=== PATIENT | female | born 1985 | race African-American/Black ===

== ENCOUNTER 2016-05-01 09:29 | Day surgery (SDC) | payer BC, OTHER ==
[2016-04-30 16:15] VITALS: BMI 25.0
[2016-05-01 09:48] LABS: BASOPHIL 1.1 % (0-2.0); EOSINOPHIL 1.3 % (0-4.5); MCH 27.1 pg (25.7-33.7); MCHC 33.3 g/dl (32.0-36.0); MEAN CELL VOLUME 81.5 fl (80-96); MEAN PLT VOLUME 7.6 fl (7.5-11.1); NEUTROPHILS 58.5 % (42.8-82.8); PLATELET COUNT 202 K/MM3 (134-434); RDW 15.7 % (11.6-15.6); WHITE BLOOD COUNT 6.2 K/mm3 (4.0-10.0)
--- NOTE | 2016-05-01 10:34 | HP ---
History & Physical Update - History History: No Change - Physical Physical: No Change - Assessment Assessment: No Change - Plan Plan: No Change (Missed at 8 weeks gestation - for suction D&C)
[2016-05-01] MEDS ORDERED: PROPOFOL 20 ML ONE ×2 (10:56→11:29)
[2016-05-01] MEDS ORDERED: MIDAZOLAM HCL 2 MG/2 ML SINGLE DOSE VIAL ONE ×2 (10:57)
[2016-05-01 11:00] LABS: ALBUMIN 3.5 g/dl (3.4-5.0); ALK PHOS 45 U/L (45-117); ANION GAP 9 (8-16); BILIRUBIN,TOTAL 0.5 mg/dL (0.2-1.0); CO2 23 mmol/L (21-32); CREATININE 0.6 mg/dL (0.55-1.02); GLUCOSE,RANDOM 88 mg/dL (74-106); SGOT/AST 8 U/L (15-37); SGPT/ALT 11 U/L (12-78); TOT PROT 6.9 g/dl (6.4-8.2)
[2016-05-01] MEDS ORDERED: IBUPROFEN 800 MG/8 ML IJ IVPB PRN (11:18)
[2016-05-01] MEDS ORDERED: ACETAMINOPHEN 325 MG TABLET (FP) PO PRN (11:18)
[2016-05-01] MEDS ORDERED: DEXAMETHASONE SOD PHOSPHATE 4 MG/1 ML VIAL ONE (11:27)
[2016-05-01] MEDS ORDERED: LACTATED RINGERS SOLUTION 1,000 ML IV SCH ×2 (11:30→12:00)
[2016-05-01] MEDS ORDERED: ONDANSETRON 4 MG/2 ML VIAL IVPUSH PRN (11:48)
[2016-05-01] MEDS ORDERED: oxyCODONE HCL 5 MG TABLET PO PRN (11:48)
--- NOTE | 2016-05-01 11:50 | OP ---
Operative Note - Note: Operative Date: 05/01/16 Pre-Operative Diagnosis: Missed at 8 weeks Operation: suction D&C Findings: 8 week sized uterus Surgeon: Tori Blanco Anesthesiologist/MANAGER APPLE: Obi Orta Anesthesia: MAC Specimens Removed: products of conception Estimated Blood Loss (mls): 25 Operative Report Dictated: Yes
[2016-05-01] MEDS ORDERED: KETOROLAC TROMETHAMINE 30 MG/1 ML VIAL ONE (12:00)
[2016-05-01 13:08] VITALS: TEMP 98.3
[2016-05-01] MEDS ORDERED: KETOROLAC TROMETHAMINE 30 MG/1 ML VIAL IVPUSH ONE (13:31)
[2016-05-01 14:41] VITALS: BP 104/58; PULSE 86
--- NOTE | 2016-05-04 12:10 | PATH ---
Surgical Pathology Report Patient Name: JOLEEN SILVER Med. Rec. #: [id number] /Age/Gender: 1985 (Age: 30) / F Account: [id number] Location: [facility] SURGICAL Taken: 05/01/2016 Received: 05/01/2016 Reported: 05/04/2016 Physicians: Tori Blanco M.D. Specimen(s) Received PRODUCTS OF CONCEPTION Clinical History Missed Final Diagnosis PRODUCTS OF CONCEPTION: SOMATIC TISSUE IDENTIFIED (NUCLEATED RED BLOOD CELLS). CHORIONIC VILLI PRESENT. FRAGMENTS OF DECIDUA. Comment: Chromosomal studies are pending; results will be reported in an addendum. Electronically Signed Rm Shin M.D. Addendum Reported: 05/18/2016 Addendum Diagnosis Chromosome Analysis performed and interpreted at [facility] in [place], [place] (Specimen #[id number]) shows the following: RESULTS: NO ANALYSIS POSSIBLE INTERPRETATION: No cell growth occurred in tissue culture, and therefore chromosome analysis was not possible. Note: Microarray analysis does not require cell culture and may be able to identify genomic imbalances responsible for the loss. If microarray analysis is desired, please contact the Department of Pathology. Jhonatan Mccabe M.D. Gross Description Received fresh, labeled "contents of conception chromosomal analysis" is a 10.0 x 6.5 x 1.0 cm aggregate of solis-red soft tissue fragments. Villous tissue is grossly identified. No somatic tissue is grossly identified. A business services representative portion is placed in RPMI solution and sent for chromosomal analysis. An additional business services representative portion is submitted in one cassette. 05/01/2016 [facility]05/01/2016
--- NOTE | 2016-07-17 12:01 | OP ---
DATE OF OPERATION: 05/01/2016 PREOPERATIVE DIAGNOSIS: Missed and 8 weeks gestation. POSTOPERATIVE DIAGNOSIS: Missed and 8 weeks gestation. PROCEDURE: Suction dilation and curettage. SURGEON: Tori Blanco MD ANESTHESIA: MAC ANESTHESIOLOGIST: Obi Orta MD ESTIMATED BLOOD LOSS: 25 mL. SPECIMENS REMOVED: Included products of conception. FINDINGS: Included 8 weeks sized uterus. Otherwise, normal female genitalia and anatomy. COMPLICATIONS: None. DISPOSITION: Stable to PACU. COUNTS: Sponge and instrument counts reported to be correct at the end of the case. BRIEF HISTORY AND PROCEDURE: Patient is a 30-year-old female who had been seen in the office with a diagnosis of missed , set up for a dilation and curettage procedure. Consents were signed upon admission to the hospital. The patient was admitted on May 01, 2016. The surgeon and the patient were mutually identified in the holding area. She was then taken back to the operating room. She was given MAC anesthesia by Dr. Orta. She was then prepped and draped in the dorsal lithotomy position in the usual fashion. A hard time-out was performed. A speculum was placed in the vagina, and the anterior lip of the cervix was grasped with a single-tooth tenaculum. The cervix was serially dilated to accommodate an 8 curved suction curette, which was advanced to the fundus. Several passes of the suction curette were completed. Then, using sharp curettage, gentle curettage of all 4 iglesias of the uterus was completed until adequate uterine cry was appreciated. One final pass with the suction curette was obtained. All instruments were removed from the vagina. Tenaculum sites were noted to be hemostatic. Minimal bleeding was noted from the cervical os. The patient was awoken from anesthesia and was recovering in stable condition in the PACU after the procedure. All sponge and instrument counts were reported correct at the end of the case TORI BLANCO DO /[id number] MTDD
== END 2016-05-01 14:45 | disposition home or self-care (01) ==
LOC: JASU-SURG 09:29
PROVIDERS: ATTEND Obstetrics & Gynecology
PROC: 10D17ZZ Extraction of Products of Conception, Retained, Via Natural or Artificial Opening (ICD-10-PCS; principal; 2016-05-01 11:00)
DX: O02.1 Missed abortion (principal); Z3A.08 8 weeks gestation of pregnancy
CPT/HCPCS: 36415; 80053; 85025; 86850; 86900; 86901; 88305-TC; 94760